=== PATIENT | female | born 1975 | race Two or more races ===

== ENCOUNTER 2022-12-18 19:04 | Emergency (ER) | payer SELFPAY ==
[~2022-12-18] VITALS: Ht 154.9 cm; Wt 72.0 kg
[2022-12-18 20:19] VITALS: BP 130/84; PULSE 107; RESP 16; TEMP 98; O2SAT 100
== END 2022-12-18 22:17 | disposition left against medical advice (07) ==
LOC: ER 19:04
DX: M54.2 Cervicalgia (principal); M54.89 Other dorsalgia; M25.511 Pain in right shoulder; M25.562 Pain in left knee; M25.561 Pain in right knee; Z88.0 Allergy status to penicillin; Z88.8 Allergy status to other drugs, medicaments and biological substances